=== PATIENT | male | born 1955 | race Caucasian/White ===

== ENCOUNTER 2025-07-24 10:52 | Emergency (ER) | payer OTHER, SELFPAY ==
[2025-07-24 10:58] VITALS: BP 135/85
[2025-07-24 13:03] VITALS: BP 153/88
[2025-07-24 13:05] VITALS: BMI 30.3
[2025-07-24 13:06] VITALS: BP 153/88
[2025-07-24 14:31] VITALS: BP 149/86
[2025-07-24 14:54] VITALS: BP 137/84
--- NOTE | 2025-07-24 14:55 | ED.GENMED ---
History of Present Illness
General
Chief Complaint: Dizziness
Source: patient
Time Seen by Provider: 07/24/25 12:15
History of Present Illness
History of Present Illness:
Note:
CHIEF COMPLAINT(S)
Dizziness.
HISTORY OF PRESENT ILLNESS
The patient is a 69-year-old male who presented with complaints of dizziness, which began on Saturday while he was at work. The dizziness is described as a sense of movement, particularly a spinning sensation when he tilts his head to the right. The
dizziness significantly worsened on Saturday night while lying in bed and rolling onto the right side, characterized as a 'horrible' sense of movement. The symptom subsided when the patient positioned himself face up and has avoided laying down
since then. The dizziness is still present to a mild degree while sitting.
The patient reports experiencing a ringing in the ears a day or two before the onset of dizziness, but denies any new hearing loss. He has a history of hearing loss from left-sided surgery performed at age 14, which involved the removal of part of
the mastoid bone. There is also a history of intermittent ear infections treated by an ear, nose, and throat specialist. Recently, he noticed slight pain in the ear following the ringing, which subsided quickly.
The patient has seen his regular physician, who conducted blood tests that returned normal but recommended an evaluation in the emergency department.
PHYSICAL EXAM
General: Alert, no acute distress.
Skin: Warm, dry.
Head: Normocephalic, atraumatic.
Neck: Supple, trachea midline.
Eye, Ears, Nose, Mouth, and Throat: Oral mucosa moist. Right tympanic membrane shows some bloody changes with no diffuse redness or bulging. Ear canal appears normal.
Cardiovascular: Normal peripheral perfusion, No edema.
Respiratory: Respirations are non-labored.
Gastrointestinal: Abdomen nondistended.
Back: Normal range of motion, Normal alignment.
Musculoskeletal: Normal ROM, normal strength.
Neurological: Alert and oriented to person, place, time, and situation, No focal neurological deficit observed. Normal [id number] testing and automation controls specialist strength. Normal gait. No pronator drift. Cranial nerves intact. No nystagmus.
Psychiatric: Cooperative, appropriate mood & affect.
PROBLEM LIST
Acute:
- Dizziness with positional vertigo indicating possible peripheral vestibular disorder.
PLAN
- The patient will be evaluated by physical therapy to perform maneuvers that may help reposition otoliths in the inner ear and alleviate symptoms of benign positional vertigo.
- Discussion regarding the option of a CT scan for further evaluation; however, the utility is limited as it may not reveal inner ear pathology.
- Symptomatic management with medications to alleviate dizziness could be considered.
DIFFERENTIAL DIAGNOSIS
The Differential Diagnosis includes, in no particular order and is not limited to:
- Benign Paroxysmal Positional Vertigo (BPPV)
- Menieres Disease
- Vestibular Neuritis
- Labyrinthitis
- Acoustic Neuroma
- Stroke or Transient Ischemic Attack (TIA)
- Orthostatic Hypotension
- Migraine-associated Vertigo
- Inner ear infection
- Medication-induced vertigo
EKG
My independent EKG interpretation is:
- Time of EKG: [Information not provided]
- Rhythm: Normal sinus rhythm
- Heart Rate: 62 bpm
- NE Interval: Normal
- QRS Duration: Normal
- QT Interval: Normal
- Wells: Normal
- Abnormalities Observed: None
Disposition:
SUMMARY OF ENCOUNTER
The patient is a 69-year-old male who presented to the emergency department with a five-day history of room-spinning dizziness. On examination, a CT scan of the head was conducted, revealing no acute findings. Additionally, an EKG was performed,
showing normal results. The motor exam and gait were normal. Physical therapy evaluation failed to elicit any nystagmus, but the Debby maneuver was performed. Given the history of ear surgery and recent tinnitus, the possibility of Menieres disease
was considered. It was advised to pursue follow-up with an ear, nose, and throat (ENT) specialist and outpatient physical therapy for vestibular rehabilitation.
ASSESSMENT
The patients dizziness is likely related to a peripheral vestibular disorder, potentially Menieres disease, especially considering his history of tinnitus and past otologic surgery.
PLAN
The plan includes advising follow-up with an ENT specialist and arranging outpatient physical therapy for vestibular rehabilitation to manage symptoms and assess potential underlying conditions such as Menieres disease.
INDEPENDENT REVIEW OF LABS AND INTERPRETATION OF TESTS
My independent review of the EKG is that it shows normal sinus rhythm with no abnormalities. A CT scan of the head shows no evidence of acute findings.
MEDICATION RECONCILIATION
Prescription medication was considered but ultimately not given.
MEDICAL DECISION MAKING
-Chronic conditions affecting care included past otologic surgery and recent tinnitus.
-Data:
Category 1
My independent interpretation of a CT scan of the head shows no acute findings.
My independent interpretation of the EKG shows normal sinus rhythm with no abnormalities.
Category 3
Consideration of the differential diagnosis, which includes benign paroxysmal positional vertigo (BPPV), Menieres disease, vestibular neuritis, labyrinthitis, acoustic neuroma, stroke or transient ischemic attack (TIA), orthostatic hypotension,
migraine-associated vertigo, inner ear infection, and medication-induced vertigo.
-Risk:
Prescription medication was considered, but ultimately not given after discussion.
Consideration of Admission/Observation: Escalation of care including admission/observation was considered given the complexity and risk of the patients presenting complaint, exam findings, and/or their underlying comorbidities. However, ultimately I
feel the patient is safe for outpatient management with close follow-up. Reasoning: Work-up reassuring, does not reveal any acute life/organ-threatening processes, patients symptoms well controlled upon reevaluation, reexamination is reassuring,
vitals are stable, patient agreeable with discharge, reliable for follow-up.
DIAGNOSIS
Benign Paroxysmal Positional Vertigo (BPPV), ICD-10 code H81.1.
Considered Menieres Disease, ICD-10 code H81.09.
Past History
Past History
ED Past Medical History: HTN
ED Past Surgical History: Other (Patient has a history of back surgery, shoulder surgery, ear surgery and surgery for deviated septum); Negative Cardiac
Social History
Tobacco: Non-smoker
Alcohol: None
Drug: None
Personal:
Living: with family
Employment: Employed
Family History
Family History: Hypertension
Phy Exam
Physical Exam
Physical Exam:
.
Course
Orders/Labs/Results
Orders:
Orders
07/24/25 12:15
Electrocardiogram (*1) Urgent
Reason for Study: Vertigo / Dizzy
CT Head W/o Iv Contrast Urgent
Comment:
Reason For Exam: dizziness
EKG- Treatment ONCE
07/24/25 12:36
PT Consult [Pt Eval And Treat] Urgent
Treatment: vertigo
Activity Level: Out of Bed- Ad Rosa Maria
07/24/25 12:15
07/24/25 12:15
Vital Signs
Initial and Last Documented VS:
Initial Vital Signs
Temp Pulse Resp BP Pulse Ox
97.7 F 70 18 135/85 98
07/24/25 10:58 07/24/25 10:58 07/24/25 10:58 07/24/25 10:58 07/24/25 10:58
Last Documented Vital Signs
Temp Pulse Resp BP Pulse Ox
97.7 F 61 18 153/88 96
07/24/25 10:58 07/24/25 13:06 07/24/25 10:58 07/24/25 13:06 07/24/25 14:57
*Pulse Oximetry
SaO2: 96
Oxygen Mode of Delivery: Room air
Patient hypoxic: no
*Critical Care Note
Total Time (30-74mins, 75-104mins- exclusive of procedures): Not Applicable
ED Attending Note
-
Portions of this chart may have been created with voice recognition software.� Occasional wrong word or��sound alike� substitutions may have occurred due to the inherent limitations of voice recognition software.
Discharge Plan
Departure
Patient Disposition: Home (Routine Discharge)
Date of Disposition: 07/24/25
Time of Disposition: 14:57
Patient with high blood pressure during this ER visit?: Yes
Discharge Problem:
Vertigo
Instructions: Vertigo (a Type of Dizziness) (DC), BLOOD PRESSURE
Prescriptions:
New
meclizine 25 mg tablet
25 mg PO TID PRN (Reason: motion sickness) Qty: 14 0RF
No Action
No Meds [No Current Medications]
0
Referrals:
Norman Flores, DO [Family Provider, [facility]]
Activity Restrictions/Additional Instructions:
Please see your doctor and ENT and follow-up in the next 1 week for follow-up and reevaluation. Please also follow-up with vestibular therapy as discussed. Return immediately for inability to walk, motor weakness of any kind, vision changes,
vision loss or any other concerns. Do not take meclizine on the day of evaluation by vestibular therapy
Interventions
Interventions:
*Risk Screen - Suicide Last Done: 07/24/25 10:58
*General Assessment Last Done: 07/24/25 13:06
*Neglect/Abuse Screening Last Done: 07/24/25 13:06
*ED- Fall Risk Assessment Last Done: 07/24/25 13:06
*ED COVID-19 Vaccine History Last Done: 07/24/25 13:06
*ED Influenza Vaccine History Last Done: 07/24/25 13:06
ED- Neurological Assessment Last Done: 07/24/25 13:08
Discharge Date and Time
Print Language: [place]
[2025-07-24 15:45] VITALS: BP 137/84; BP 149/86; PULSE 65; O2SAT 99
== END 2025-07-24 14:45 | disposition home or self-care (01) ==
LOC: EMR 10:52
PROVIDERS: EMERGENCY PHYSICIAN Emergency Medicine; FAMILY PHYSICIAN Family Medicine
DX: H81.10 Benign paroxysmal vertigo, unspecified ear (principal); H93.13 Tinnitus, bilateral; I10 Essential (primary) hypertension; H91.92 Unspecified hearing loss, left ear
CPT/HCPCS: 99284; 70450; 93005; 97112